=== PATIENT | male | born 2000 | race Caucasian/White ===

== ENCOUNTER 2021-02-25 17:07 | Emergency (ER) | payer OTHER ==
[~2021-02-25] VITALS: Ht 193 cm; Wt 106.8 kg
[2021-02-25 17:11] VITALS: BP 134/84
[2021-02-25] MEDS ORDERED: proparacaine 0.5% ophthalmic drops 15ml LEFTEYE ONE (17:20)
--- NOTE | 2021-02-25 17:27 | NUR ---
SHARON Rice in triage to flush affected eye with saline.
[2021-02-25] MEDS ORDERED: ERYT1OIN6 LEFTEYE (18:13)
== END 2021-02-25 18:21 | disposition home or self-care (01) ==
LOC: ER 17:08
DX: T15.82XA Foreign body in other and multiple parts of external eye, left eye, initial encounter (principal); H57.12 Ocular pain, left eye; Z79.2 Long term (current) use of antibiotics; X58.XXXA Exposure to other specified factors, initial encounter; Y93.89 Activity, other specified; Y92.89 Other specified places as the place of occurrence of the external cause; Y99.8 Other external cause status
CPT/HCPCS: 65222; 99284